=== PATIENT | female | born 1970 | race Caucasian/White ===

== ENCOUNTER 2020-07-11 16:33 | Outpatient (CLI) | payer OTHER, SELFPAY ==
--- NOTE | ~2020-07-11 | MM_ITS ---
EXAMINATION: MM screening [facility] BI w rakan HISTORY: Screening TECHNIQUE: Craniocaudal and mediolateral oblique 3-D tomosynthesis images were obtained and synthetic 2-D images were generated. CAD analysis was submitted and interpreted. COMPARISON: Comparison to multiple prior studies sequentially, with oldest reviewed study dated 09/02. BREAST PARENCHYMAL COMPOSITION: There are scattered areas of fibroglandular density. FINDINGS: No significant change to benign-appearing left breast mass containing coarse calcifications . There is no evidence of suspicious mass, calcification, or architectural distortion to suggest annette gnancy in either breast. There has been no suspicious interval change. IMPRESSION: 1. No mammographic evidence of malignancy. 2. Recommend routine screening mammography in one year. BI-RADS Category 2: Benign finding(s). Reviewed, dictated and finalized at location A. [facility] [employer]
== END 2020-07-11 16:34 | disposition home or self-care (01) ==
LOC: ANHIMG 16:37
PROVIDERS: PCP Nurse Practitioner Adult Health; Visit Provider Nurse Practitioner Adult Health
DX: Z12.31 Encounter for screening mammogram for malignant neoplasm of breast (principal)
CPT/HCPCS: 77063; 77067

== ENCOUNTER 2021-10-04 15:58 | Outpatient (CLI) | payer OTHER, SELFPAY ==
--- NOTE | ~2021-10-04 | MM_ITS ---
EXAMINATION: MM screening [facility] w [facility]kan HISTORY: Screening mammogram TECHNIQUE: Craniocaudal and mediolateral oblique 3-D tomosynthesis images were obtained and synthetic 2-D images were generated. CAD analysis was submitted and interpreted. COMPARISON: No prior mammogram is available for comparison at this institution. BREAST PARENCHYMAL COMPOSITION: There are scattered areas of fibroglandular density. FINDINGS: There is no evidence of suspicious mass, calcification, or architectural distortion to sugg est malignancy in either breast. There has been no suspicious interval change. Occasional benign findings includin.8 x 7.6 circumscribed low density mass with benign calcifications, likely a benign fibroadenoma, po sterior central mid to lower left breast. 3.8 x 6 mm circumscribed low density mass in the posterior lower inner right breast. IMPRESSION: 1. Benign findings 2. Recommend routine screening mammography in one year. BI-RADS Category 2: Benign finding(s). Reviewed, dictated and finalized at location A.
== END 2021-10-04 15:59 | disposition home or self-care (01) ==
LOC: ANHIMG 15:59
PROVIDERS: PCP Nurse Practitioner Adult Health; Visit Provider Internal Medicine
DX: Z12.31 Encounter for screening mammogram for malignant neoplasm of breast (principal)
CPT/HCPCS: 77063; 77067

== ENCOUNTER 2022-05-07 13:44 | Emergency (ER) | payer OTHER, SELFPAY ==
--- NOTE | ~2022-05-07 | XR_ITS ---
EXAMINATION: XR chest 2V DATE: 05/07/2022 14:06 INDICATION: Foreign body. TECHNIQUE: Frontal and lateral views of the chest were obtained. COMPARISON: None. FINDINGS: The chest demonstrates clear lungs without pneumonia, pleural effusion, or pneumothorax. Th e heart size is normal. IMPRESSION: 1. No radiopaque foreign body. Reviewed, dictated and finalized at location A.
--- NOTE | ~2022-05-07 | XR_ITS ---
EXAMINATION: XR soft tissue neck DATE: 05/07/2022 14:06 INDICATION: Foreign body. TECHNIQUE: 2 views of the neck soft tissues were obtained. COMPARISON: None. FINDINGS: The adenoids, palatine tonsils, epiglottis, prevertebral soft tissues, and glottis are norm al. IMPRESSION: 1. No radiopaque foreign body. Reviewed, dictated and finalized at location A.
[2022-05-07 13:51] VITALS: BP 145/85; PULSE 74; RESP 23; TEMP 37.1; O2SAT 96
--- NOTE | 2022-05-07 13:55 | ED.GENADULT ---
HPI - General Adult General Chief complaint: Skin/Abscess/Foreign Body Stated complaint: Possible Foreign Body Time Seen by Provider: 05/07/22 13:48 History of Present Illness HPI narrative: 52-year-old female presents to the emergency room for evaluation of possible foreign body ingestion. Patient states 2 days ago she was eating only chicken noodle soup, when she felt something sharp upon swallowing. Patient states since then she has felt it move down just a little bit and is now causing her some shortness of breath and anxiety. Patient has been able to maintain her own secretions and is able to swallow fluid and solid food without complications. Patient states I might of swallowed a chicken bone, but I am afraid it could be a toothpick as well. I am also afraid that it could go into my windpipe and cause me to have trouble breathing . Related Data Allergies Allergy/AdvReac Type Severity Reaction Status Date / Time Penicillins Allergy Unknown Verified 02/11/11 10:59 Review of Systems Review of Systems: CONSTITUTIONAL: Denies fever, chills, or sweats. EYES: Denies visual changes, redness, or discharge. ENT: Reports dysphagia CARDIOVASCULAR: Denies chest pain, palpitations, or edema. RESPIRATORY: Denies cough or dyspnea. GASTROINTESTINAL: Denies abdominal pain, nausea, vomiting, or diarrhea. GENITOURINARY: Denies dysuria or hematuria. SKIN: Denies rash or itching. MUSCULOSKELETAL: Denies back pain, joint pain, or myalgia. NEUROLOGIC: Denies headache, numbness, dizziness, or weakness. PSYCHIATRIC: Denies anxiety or depression. PMFSH Family History Family History Father Hypertension Family history of cardiovascular disease Mother Family history of elevated blood lipids Family history of hypercholesterolemia Family history of cardiovascular disease Family history of dementia Grandparent Family history of malignant neoplasm of cervix Family history of coronary artery disease Family history of malignant neoplasm of ovary Sibling Family history of malignant neoplasm of breast in first degree relative Other Diabetes mellitus Family history of malignant neoplasm of breast Social History Social History Smoking status: Former smoker Second hand tobacco smoke exposure: No Smoking end date: 07/14/16 Alcohol intake: current Exam Narrative: GENERAL: Well-appearing, well-nourished, no physical limitations, and in no acute distress. HEAD: Normocephalic, atraumatic. EYES: Conjunctivae normal, PERRLA and EOMI. NECK: Supple. No adenopathy or masses. No carotid bruits or JVD CHEST: Clear to auscultation. No respiratory distress. No wheezes rales or rhonchi. HEART: Regular rate and rhythm. No murmur heard. Normal peripheral pulses. BACK: No CVA tenderness; No cervical/thoracic/lumbar tenderness, step-offs, bony abnormality; FROM EXTREMITIES: Normal range of motion. No edema. No clubbing or cyanosis SKIN: Warm, dry, no rash. No noted wounds NEURO: No focal deficits. Alert and oriented x3. MAEW. CN's II-XI intact bilaterally, normal gait PSYCH: Cooperative. Anxious Course Vital Signs Vital signs: Vital Signs Temperature 37.1 C 05/07/22 13:51 Pulse Rate 74 05/07/22 13:51 Respiratory Rate 23 H 05/07/22 13:51 Blood Pressure 145/85 H 05/07/22 13:51 Pulse Oximetry 96 05/07/22 13:51 Oxygen Delivery Room Air 05/07/22 13:51 Temperature 37.1 C 05/07/22 13:51 Pulse Rate 74 05/07/22 13:51 Respiratory Rate 23 H 05/07/22 13:51 Blood Pressure 145/85 H 05/07/22 13:51 Pulse Oximetry 96 05/07/22 13:51 Oxygen Delivery Room Air 05/07/22 13:51 Medical Decision Making Vital Signs Vital Signs: Vital Signs Temperature 37.1 C 05/07/22 13:51 Pulse Rate 74 05/07/22 13:51 Respiratory Rate 23 H 05/07/22 13:51 Blood Pressure 145/85 H 05/07/22 13:51
--- NOTE | 2022-05-07 13:57 | PC.NURSE ---
Patient off unit to radiology.
[2022-05-07] MEDS: BELLADONNA ALK/PHENOB ELIX 10 ML, MAG HYDROX/ALUMINUM HYD/SIMETH 30 ML, LIDOCAINE HCL 2... PO (14:32)
[2022-05-07 15:07] VITALS: BP 155/84; O2SAT 99
== END 2022-05-07 15:09 | disposition home or self-care (01) ==
PROVIDERS: Emergency Provider Nurse Practitioner Family; PCP Internal Medicine
DX: F45.8 Other somatoform disorders (principal); Z87.891 Personal history of nicotine dependence
CPT/HCPCS: 70360; 71046; 99283; A9270

== ENCOUNTER 2022-10-17 15:31 | Outpatient (CLI) | payer OTHER, SELFPAY ==
--- NOTE | ~2022-10-17 | MM_ITS ---
EXAMINATION: MM screening [facility] BI w rakan HISTORY: Screening TECHNIQUE: Craniocaudal and mediolateral oblique 3-D tomosynthesis images were obtained and synthetic 2-D images were generated. CAD analysis was submitted and interpreted. COMPARISON: Comparison to multiple prior studies sequentially, with oldest reviewed study dated 05/15. BREAST PARENCHYMAL COMPOSITION: There are scattered areas of fibroglandular density. FINDINGS: There is no evidence of suspicious mass, calcification, or architectural distortion to sugg est malignancy in either breast. There has been no suspicious interval change. IMPRESSION: 1. No mammographic evidence of malignancy. 2. Recommend routine screening mammography in one year. BI-RADS Category 1: Negative Reviewed, dictated and finalized at location A.
== END 2022-10-17 15:32 | disposition home or self-care (01) ==
PROVIDERS: PCP Internal Medicine; Visit Provider Internal Medicine
DX: Z12.31 Encounter for screening mammogram for malignant neoplasm of breast (principal)
CPT/HCPCS: 77063; 77067